=== PATIENT | female | born 1940 | race Caucasian/White ===

== ENCOUNTER 2020-09-23 17:22 | Inpatient (IN) ==
[2020-09-23 20:31] LABS: ABS Eosinophils 0.1 10^3/ul (0-0.6); ABS Lymphocytes 0.8 10^3/ul (1.0-4.8); ABS Monocytes 0.5 10^3/ul (0-0.8); ABS Neutrophils 5.9 10^3/ul (1.5-7.7); Eosinophil % 0.7 %; Hematocrit 39 % (35-47); Hemoglobin 13.2 g/dL (12.0-16.0); Lymphocyte % 10.4 %; Mean Corpuscular HGB Conc 34 g/dL (31-36); Mean Corpuscular Hemoglobin 29 pg (27-31); Mean Corpuscular Volume 86 fL (80-97); Mean Platelet Volume 7.1 fL (7.4-10.4); Platelet Count 255 10^3/uL (150-450); Red Blood Count 4.49 10^6 /uL (3.70-4.87); Red Cell Distribution Width 15 % (10-15); White Blood Count 7.3 10^3/uL (3.5-10.8)
[2020-09-23 20:48] LABS: Albumin/Globulin Ratio 1.5 (1-3); BUN/Creatinine Ratio 26.3 (8-20); Calcium 9.6 mg/dL (8.6-10.3); EGFR African American 123.2 (>60); EGFR Non-African American 101.8 (>60); Globulin 2.7 g/dL (2-4); Total Bilirubin 0.6 mg/dL (0.2-1.0); Total Protein 6.7 g/dL (6.4-8.9)
[2020-09-23 21:35] LABS: TSH Ultra Thyroid Stim Horm 1.09 mcIU/mL (0.34-5.60)
[2020-09-23 23:07] LABS: Urine Appearance Clear; Urine Bilirubin Negative (Negative); Urine Blood Negative (Negative); Urine Color Yellow; Urine Glucose Negative (Negative); Urine Ketones Trace (Negative); Urine Nitrite Negative (Negative); Urine Protein Negative (Negative); Urine Specific Gravity 1.013 (1.010-1.030); Urine Urobilinogen Negative (Negative)
[2020-09-24 06:20] LABS: Erythrocyte Sed Rate 3 mm/Hr (0-29)
[2020-09-24] MEDS: Enoxaparin 40 MG/0.4 ML SYR SUBCUT SCH (06:29)
[2020-09-24 07:15] LABS: Anion Gap 6 mmol/L (2-11); CO2 Carbon Dioxide 29 mmol/L (22-32); Calcium 9.4 mg/dL (8.6-10.3); Chloride 93 mmol/L (101-111); Potassium 4.1 mmol/L (3.5-5.0); Sodium 128 mmol/L (135-145)
[2020-09-24 07:21] LABS: BUN/Creatinine Ratio 26.8 (8-20); Blood Urea Nitrogen 15 mg/dL (6-24); EGFR African American 125.7 (>60); EGFR Non-African American 103.9 (>60); Glucose 122 mg/dL (70-100)
[2020-09-24 07:59] LABS: C Reactive Protein < 1.00 mg/L (<8.01)
[2020-09-24] MEDS: Cholecalciferol (VIT D3) 1,000 unit TAB PO SCH (08:45)
[2020-09-25] MEDS ORDERED: Ondansetron 4 mg VIAL 2 MG/ML 2 ml VIAL IV PRN (02:54)
[2020-09-25] MEDS: Enoxaparin 40 MG/0.4 ML SYR SUBCUT SCH (05:38)
[2020-09-25 06:33] LABS: Hematocrit 36 % (35-47); Hemoglobin 12.4 g/dL (12.0-16.0); Mean Corpuscular HGB Conc 35 g/dL (31-36); Mean Corpuscular Hemoglobin 29 pg (27-31); Mean Corpuscular Volume 85 fL (80-97); Mean Platelet Volume 7.4 fL (7.4-10.4); Platelet Count 257 10^3/uL (150-450); Red Blood Count 4.21 10^6 /uL (3.70-4.87); Red Cell Distribution Width 14 % (10-15); White Blood Count 8.6 10^3/uL (3.5-10.8)
[2020-09-25 06:47] LABS: BUN/Creatinine Ratio 29.7 (8-20); Calcium 9.4 mg/dL (8.6-10.3); EGFR African American 107.8 (>60); EGFR Non-African American 89.1 (>60); Potassium 3.8 mmol/L (3.5-5.0)
[2020-09-25] MEDS ORDERED: Cyanocobalamin INJ 1,000 MCG/ML VIAL 1 ML VIAL IM ONE (08:50)
[2020-09-25] MEDS: Cholecalciferol (VIT D3) 1,000 unit TAB PO SCH (09:56)
[2020-09-26] MEDS: Enoxaparin 40 MG/0.4 ML SYR SUBCUT SCH (05:11)
[2020-09-26 06:38] LABS: BUN/Creatinine Ratio 34.4 (8-20); Calcium 9.3 mg/dL (8.6-10.3); EGFR African American 107.8 (>60); EGFR Non-African American 89.1 (>60); Potassium 3.7 mmol/L (3.5-5.0)
[2020-09-26] MEDS: Cholecalciferol (VIT D3) 1,000 unit TAB PO SCH (09:28)
[2020-09-26] MEDS ORDERED: Cyanocobalamin INJ 1,000 MCG/ML VIAL 1 ML VIAL IM ONE (10:00)
[2020-09-26] MEDS ORDERED: Lorazepam PYXIS KEY PRN (11:49)
[2020-09-26] MEDS ORDERED: LORazepam 2 mg VIAL 1 ml IV PUSH PRN (11:49)
[2020-09-26] MEDS ORDERED: Al Hydrox/Mg Hydrox/Simet LIQ 30 ML UDC PO PRN (19:34)
[2020-09-27] MEDS: Enoxaparin 40 MG/0.4 ML SYR SUBCUT SCH (05:45)
[2020-09-27 07:17] LABS: BUN/Creatinine Ratio 33.8 (8-20); Calcium 9.5 mg/dL (8.6-10.3); EGFR African American 100.5 (>60); Potassium 3.7 mmol/L (3.5-5.0)
[2020-09-27] MEDS: Cholecalciferol (VIT D3) 1,000 unit TAB PO SCH (10:03)
[2020-09-28] MEDS: Enoxaparin 40 MG/0.4 ML SYR SUBCUT SCH (05:45)
[2020-09-28] MEDS: Cholecalciferol (VIT D3) 1,000 unit TAB PO SCH (09:04)
[2020-09-28 09:36] LABS: ABS Eosinophils 0.1 10^3/ul (0-0.6); ABS Lymphocytes 0.9 10^3/ul (1.0-4.8); ABS Monocytes 0.6 10^3/ul (0-0.8); ABS Neutrophils 5.8 10^3/ul (1.5-7.7); Eosinophil % 0.9 %; Hematocrit 37 % (35-47); Hemoglobin 12.5 g/dL (12.0-16.0); Mean Corpuscular HGB Conc 34 g/dL (31-36); Mean Corpuscular Hemoglobin 29 pg (27-31); Mean Corpuscular Volume 87 fL (80-97); Mean Platelet Volume 7.3 fL (7.4-10.4); Platelet Count 265 10^3/uL (150-450); Red Blood Count 4.26 10^6 /uL (3.70-4.87); Red Cell Distribution Width 14 % (10-15); White Blood Count 7.4 10^3/uL (3.5-10.8)
[2020-09-28 09:49] LABS: BUN/Creatinine Ratio 37.1 (8-20); Calcium 9.5 mg/dL (8.6-10.3); EGFR African American 111.8 (>60); EGFR Non-African American 92.4 (>60); Potassium 3.5 mmol/L (3.5-5.0)
[2020-09-28 10:23] LABS: Urine Appearance Cloudy; Urine Bilirubin Negative (Negative); Urine Blood Negative (Negative); Urine Color Amber; Urine Glucose Negative (Negative); Urine Ketones Negative (Negative); Urine Nitrite Positive (Negative); Urine Protein Negative (Negative); Urine Specific Gravity 1.016 (1.010-1.030); Urine Urobilinogen Positive (Negative)
[2020-09-28 10:27] LABS: Urine Bacteria 1+ (Absent); Urine Red Blood Cell Trace(0-2/hpf) (Absent); Urine Squamous Epithelial Cell Present (Absent); Urine White Blood Cell 3+(>20/hpf) (Absent)
[2020-09-28] MEDS ORDERED: Nitrofurantoin (monohydrate/macrocrystals) 100 mg CAP PO SCH (13:31)
[2020-09-28 19:53] VITALS: BP 137/88
== END 2020-09-28 18:50 | disposition home health service (06) | DRG 884 ==
LOC: ED 17:22 → MED 09-24 00:43
PROVIDERS: ADMIT Internal Medicine; ATTEND Internal Medicine

== ENCOUNTER 2020-10-08 11:52 | Inpatient (IN) ==
[2020-10-08] MEDS ORDERED: NS 0.9% 1000 ml BAG 1,000 ML IV ONE ×2 (12:19→14:08)
[2020-10-08 13:16] LABS: Urine Appearance Clear; Urine Bilirubin Negative (Negative); Urine Blood Negative (Negative); Urine Color Yellow; Urine Glucose Negative (Negative); Urine Ketones Trace (Negative); Urine Nitrite Negative (Negative); Urine Protein Negative (Negative); Urine Specific Gravity 1.013 (1.010-1.030); Urine Urobilinogen Positive (Negative)
[2020-10-08 13:25] LABS: ABS Eosinophils 0.1 10^3/ul (0-0.6); ABS Lymphocytes 0.8 10^3/ul (1.0-4.8); ABS Monocytes 0.7 10^3/ul (0-0.8); ABS Neutrophils 8.6 10^3/ul (1.5-7.7); Eosinophil % 0.5 %; Hematocrit 38 % (35-47); Hemoglobin 13.3 g/dL (12.0-16.0); Lymphocyte % 8.3 %; Mean Corpuscular HGB Conc 35 g/dL (31-36); Mean Corpuscular Hemoglobin 30 pg (27-31); Mean Corpuscular Volume 86 fL (80-97); Mean Platelet Volume 7.6 fL (7.4-10.4); Nucleated Red Blood Cells % 0.1; Platelet Count 306 10^3/uL (150-450); Red Blood Count 4.49 10^6 /uL (3.70-4.87); Red Cell Distribution Width 15 % (10-15); White Blood Count 10.2 10^3/uL (3.5-10.8)
[2020-10-08 13:32] LABS: Urine Benzodiazepine Screen None Detected (None Detect); Urine Cannabinoids Screen None Detected (None Detect); Urine Opiates Screen None Detected (None Detect)
[2020-10-08 13:41] LABS: ALT 20 U/L (7-52); Albumin 3.7 g/dL (3.2-5.2); Albumin/Globulin Ratio 1.5 (1-3); Alkaline Phosphatase 149 U/L (34-104); BUN/Creatinine Ratio 24.2 (8-20); Blood Urea Nitrogen 16 mg/dL (6-24); CO2 Carbon Dioxide 26 mmol/L (22-32); Calcium 9.2 mg/dL (8.6-10.3); Chloride 90 mmol/L (101-111); Creatine Kinase 56 U/L (10-223); EGFR African American 103.7 (>60); EGFR Non-African American 85.7 (>60); Globulin 2.4 g/dL (2-4); Glucose 224 mg/dL (70-100); Sodium 124 mmol/L (135-145); Total Protein 6.1 g/dL (6.4-8.9)
[2020-10-08 13:42] LABS: Troponin I 0.01 ng/mL (<0.03)
[2020-10-08 13:43] LABS: Anion Gap 8 mmol/L (2-11)
[2020-10-08 14:15] LABS: Acetaminophen < 15 mcg/mL; Alcohol, S < 10 mg/dL (<10); Salicylate < 2.50 mg/dL (<30)
[2020-10-08] MEDS ORDERED: Ondansetron 4 mg VIAL 2 MG/ML 2 ml VIAL IV ONE (14:21)
[2020-10-08 14:28] LABS: TSH Ultra Thyroid Stim Horm 1.64 mcIU/mL (0.34-5.60)
[2020-10-08] MEDS ORDERED: Ondansetron 4 mg VIAL 2 MG/ML 2 ml VIAL IV PRN (15:09)
[2020-10-08 15:23] LABS: C Reactive Protein 1.09 mg/L (<8.01)
[2020-10-08 15:39] LABS: Magnesium 1.4 mg/dL (1.9-2.7)
[2020-10-08] MEDS ORDERED: Magnesium Sulfate IV 3 GM in NS 0.9% 100 ml BAG 100 ML IVPB ONE (15:41)
[2020-10-08] MEDS ORDERED: Potassium Chlor 20 meq TAB.ER PO ONE (15:41)
[2020-10-08] MEDS ORDERED: Dextrose 50% Syringe 50 ml 25 GM/50 ML SYRINGE IV PUSH PRN (15:46)
[2020-10-08 15:59] LABS: Erythrocyte Sed Rate 3 mm/Hr (0-29)
[2020-10-08] MEDS ORDERED: Enoxaparin 40 MG/0.4 ML SYR SUBCUT SCH (16:00)
[2020-10-08] MEDS ORDERED: Potassium Chloride LIQUID 20 MEQ/15 ML LIQUID PO ONE (17:00)
[2020-10-08] MEDS: KCL 20 MEQ/100 ML IVPREMIX 20 MEQ/100 ML BAG IV SCH ×2 (17:48→20:37)
[2020-10-08] MEDS: Enoxaparin 40 MG/0.4 ML SYR SUBCUT SCH (20:40)
[2020-10-09 06:50] LABS: BUN/Creatinine Ratio 18.8 (8-20); EGFR African American 149.8 (>60); EGFR Non-African American 123.8 (>60); Potassium 4.1 mmol/L (3.5-5.0)
[2020-10-09] MEDS: Cholecalciferol (VIT D3) 1,000 unit TAB PO SCH (09:59)
[2020-10-09] MEDS: Enoxaparin 40 MG/0.4 ML SYR SUBCUT SCH (19:52)
[2020-10-10] MEDS: Cholecalciferol (VIT D3) 1,000 unit TAB PO SCH (08:00)
[2020-10-10] MEDS: Enoxaparin 40 MG/0.4 ML SYR SUBCUT SCH (19:53)
[2020-10-11 06:57] LABS: EGFR African American 100.2 (>60); EGFR Non-African American 82.8 (>60); Magnesium 1.7 mg/dL (1.9-2.7); Potassium 3.7 mmol/L (3.5-5.0)
[2020-10-11] MEDS: Cholecalciferol (VIT D3) 1,000 unit TAB PO SCH (09:28)
[2020-10-11] MEDS ORDERED: Magnesium Sulfate 2 gm BAG 2 GM/50 ML BAG IVPB ONE (11:23)
[2020-10-11] MEDS: NS 0.9% 1000 ml BAG 1,000 ML IV SCH (13:27)
[2020-10-11] MEDS: Enoxaparin 40 MG/0.4 ML SYR SUBCUT SCH (21:25)
[2020-10-12] MEDS: NS 0.9% 1000 ml BAG 1,000 ML IV SCH (05:29)
[2020-10-12] MEDS: Cholecalciferol (VIT D3) 1,000 unit TAB PO SCH (10:05)
[2020-10-12 14:14] LABS: ABS Eosinophils 0.1 10^3/ul (0-0.6); ABS Lymphocytes 0.8 10^3/ul (1.0-4.8); ABS Monocytes 0.6 10^3/ul (0-0.8); ABS Neutrophils 7.7 10^3/ul (1.5-7.7); Eosinophil % 0.8 %; Hematocrit 34 % (35-47); Hemoglobin 11.5 g/dL (12.0-16.0); Lymphocyte % 8.5 %; Mean Corpuscular HGB Conc 33 g/dL (31-36); Mean Corpuscular Hemoglobin 29 pg (27-31); Mean Corpuscular Volume 87 fL (80-97); Mean Platelet Volume 7.2 fL (7.4-10.4); Platelet Count 255 10^3/uL (150-450); Red Blood Count 3.96 10^6 /uL (3.70-4.87); Red Cell Distribution Width 15 % (10-15); White Blood Count 9.1 10^3/uL (3.5-10.8)
[2020-10-12] MEDS: Magnesium Hydroxide LIQ 30 ML UDC PO PRN (14:31)
[2020-10-12 14:35] LABS: BUN/Creatinine Ratio 30.5 (8-20); Calcium 8.8 mg/dL (8.6-10.3); EGFR African American 118.1 (>60); EGFR Non-African American 97.6 (>60); Magnesium 1.8 mg/dL (1.9-2.7); Potassium 3.3 mmol/L (3.5-5.0)
[2020-10-12] MEDS ORDERED: Ondansetron 4 mg VIAL 2 MG/ML 2 ml VIAL IV ONE (15:02)
[2020-10-12] MEDS: Senna TAB 8.6 mg TAB PO PRN (21:20)
[2020-10-12] MEDS: Enoxaparin 40 MG/0.4 ML SYR SUBCUT SCH (21:29)
[2020-10-13 06:40] LABS: ABS Eosinophils 0.1 10^3/ul (0-0.6); ABS Lymphocytes 0.9 10^3/ul (1.0-4.8); ABS Monocytes 0.6 10^3/ul (0-0.8); Eosinophil % 0.9 %; Hematocrit 35 % (35-47); Hemoglobin 11.8 g/dL (12.0-16.0); Lymphocyte % 12.4 %; Mean Corpuscular HGB Conc 34 g/dL (31-36); Mean Corpuscular Hemoglobin 29 pg (27-31); Mean Corpuscular Volume 86 fL (80-97); Mean Platelet Volume 7.6 fL (7.4-10.4); Platelet Count 251 10^3/uL (150-450); Red Blood Count 4.08 10^6 /uL (3.70-4.87); Red Cell Distribution Width 15 % (10-15); White Blood Count 7.6 10^3/uL (3.5-10.8)
[2020-10-13 06:43] LABS: BUN/Creatinine Ratio 28.6 (8-20); Calcium 9.2 mg/dL (8.6-10.3); EGFR African American 125.4 (>60); EGFR Non-African American 103.6 (>60); Potassium 3.7 mmol/L (3.5-5.0)
[2020-10-13] MEDS: Cholecalciferol (VIT D3) 1,000 unit TAB PO SCH (08:53)
[2020-10-13] MEDS: Senna TAB 8.6 mg TAB PO PRN (17:21)
[2020-10-13] MEDS: Magnesium Hydroxide LIQ 30 ML UDC PO PRN (17:21)
[2020-10-13] MEDS: Enoxaparin 40 MG/0.4 ML SYR SUBCUT SCH (20:21)
[2020-10-14] MEDS: Cholecalciferol (VIT D3) 1,000 unit TAB PO SCH (09:30)
[2020-10-14] MEDS: Enoxaparin 40 MG/0.4 ML SYR SUBCUT SCH (21:07)
[2020-10-15] MEDS: Cholecalciferol (VIT D3) 1,000 unit TAB PO SCH (10:17)
[2020-10-15] MEDS: Senna TAB 8.6 mg TAB PO PRN (10:18)
[2020-10-15] MEDS: Enoxaparin 40 MG/0.4 ML SYR SUBCUT SCH (19:53)
[2020-10-16] MEDS: Senna TAB 8.6 mg TAB PO PRN (11:15)
[2020-10-16] MEDS: Cholecalciferol (VIT D3) 1,000 unit TAB PO SCH (11:16)
[2020-10-16] MEDS: Enoxaparin 40 MG/0.4 ML SYR SUBCUT SCH (21:18)
[2020-10-17] MEDS: Cholecalciferol (VIT D3) 1,000 unit TAB PO SCH (11:04)
[2020-10-17] MEDS ORDERED: Polyethylene Glycol 3350 17 GM PACKET PO PRN (11:37)
[2020-10-17] MEDS: Magnesium Hydroxide LIQ 30 ML UDC PO PRN (20:46)
[2020-10-20] MEDS ORDERED: Morphine ORAL CONCENTRATE 5 MG/0.25 ML ORAL.SYRIN PO ONE ×2 (03:05)
[2020-10-20 09:54] VITALS: BP 117/76
== END 2020-10-20 10:15 | disposition hospice, home (50) | DRG 641 ==
LOC: ED 11:52 → MEDTELE 15:09
PROVIDERS: ADMIT Student in an Organized Health Care Education/Training Program; ATTEND Internal Medicine